=== PATIENT | female | born 1980 | race Hispanic/Latino ===

== ENCOUNTER 2019-07-01 07:49 | Outpatient (CLI) | payer OTHER ==
--- NOTE | 2019-07-01 09:41 | ULT ---
PELVIC ULTRASOUND: Transabdominal ultrasound pelvis performed. INDICATION: Irregular menses. FINDINGS: Uterus is mildly prominent and heterogeneous measuring 9.0 x 5.1 x 5.8 cm. Endometrial stripe mildly prominent measuring 7-8 mm. Small right ovarian cyst measuring 1.5 cm. Both ovaries otherwise unremarkable. Color Doppler and s pectral analysis demonstrate blood flow to both ovaries. IMPRESSION: Mildly prominent and heterogeneous uterus. Endometrial upper normal. POS: C
== END 2019-07-01 07:50 | disposition home or self-care (01) ==
LOC: BICULT 07:49
PROVIDERS: ATTEND Family Medicine
DX: N93.9 Abnormal uterine and vaginal bleeding, unspecified (principal)
CPT/HCPCS: 76856; 93976

== ENCOUNTER 2022-09-01 08:38 | Outpatient (CLI) | payer OTHER | END 2022-09-01 08:39 | disposition home or self-care (01) | LOC: BICMAMMO 08:38 | PROVIDERS: ATTEND Family Medicine | DX: Z12.31 Encounter for screening mammogram for malignant neoplasm of breast (principal) | CPT/HCPCS: 77063; 77067 ==

== ENCOUNTER 2023-11-02 14:57 | Outpatient (CLI) | payer OTHER | END 2023-11-02 14:58 | disposition home or self-care (01) | LOC: BICMAMMO 14:57 | PROVIDERS: ATTEND Family Medicine | DX: Z12.31 Encounter for screening mammogram for malignant neoplasm of breast (principal) | CPT/HCPCS: 77063; 77067 ==